=== PATIENT | male | born 1955 | race Caucasian/White ===

== ENCOUNTER 2017-11-13 06:17 | Emergency (ER) | payer OTHER ==
[2017-11-13] MEDS: HYDROCODONE/APAP (5/325) TAB PO (06:54)
[2017-11-13] MEDS: DIPHTH/TET/ACEL PERTUSS (ADULT) 0.5 ML VIAL IM* (06:55)
[2017-11-13] MEDS ORDERED: LIDOCAINE 1%/EPI (MDV) 50 ML INJ INJ (07:00)
[2017-11-13] MEDS: LIDOCAINE 1%/EPI (1:100,000) (MDV) 20 ML INJ (07:17)
[2017-11-13] MEDS: BENOXINATE/FLUORESCEIN DROPS RIGHT EYE (07:31)
== END 2017-11-13 09:32 | disposition home or self-care (01) ==
LOC: FTE 06:17
DX: S01.111A Laceration without foreign body of right eyelid and periocular area, initial encounter (principal); S05.91XA Unspecified injury of right eye and orbit, initial encounter; I10 Essential (primary) hypertension; W22.8XXA Striking against or struck by other objects, initial encounter; Y92.89 Other specified places as the place of occurrence of the external cause; Z23 Encounter for immunization
CPT/HCPCS: 12011; 70480; 90471; 90715; 99284-25